=== PATIENT | female | born 1995 | race Caucasian/White ===

== ENCOUNTER 2016-10-27 12:48 | Emergency (ER) | payer OTHER ==
[~2016-10-27] VITALS: Ht 165.1 cm; Wt 90.7 kg
[~2016-10-27 12:48] MED LIST: MUCINEX D ER T1 EACH PO; NOHOMEMEDS; PERCOCET 5/31 TABLET PO; PREDNISONE20 MG PO; PRILOSEC OTC20 MG PO; TESSALON PERLE100 MG PO; TRI-PREVIFEM1 EACH PO; ZITHROMAX250 MG PO; ZOFRAN4 MG PO
[2016-10-27 13:26] LABS: HEMATOCRIT 40.9 % (36.0-46.0); MCH 29.3 PG (29.0-34.0); MCV 83.8 FL (83-99); MEAN PLAT.VOLUME 10.3 uM^3 (9.5-12.4); PLATELET COUNT 300 K/uL (156-360); RBC DIS.WIDTH-CV 12.6 % (11.8-14.6); RBC DIS.WIDTH-SD 37.9 % (39-53); RED BLOOD COUNT 4.88 M/uL (3.80-5.20); WHITE BLOOD COUNT 9.3 K/uL (4.1-10.2)
[2016-10-27 13:33] LABS: CHLORIDE 112 mEq/L (99-109); POTASSIUM 4.3 mEq/L (3.7-5.4); SODIUM 142 mEq/L (136-147)
[2016-10-27 13:36] LABS: GLUCOSE 94 mg/dL (70-99)
[2016-10-27 13:37] LABS: ANION GAP 8 MEQ/L (2-14)
[2016-10-27 13:38] LABS: TOTAL BILIRUBIN 0.4 mg/dL (0.0-1.0)
[2016-10-27 13:39] LABS: ALKALINE PHOSPHATASE 59 IU/L (3-129); GFR ESTIMATE (CALCULATED) > 59 mL/min/
[2016-10-27 13:40] LABS: UREA NITROGEN (BUN) 11 mg/dL (9-23)
[2016-10-27 13:43] LABS: ADD MIUA? YES; BILIRUBIN NEGATIVE; BLOOD LARGE; COLOR YELLOW ((YELLOW)); GLUCOSE (STRIP) NEGATIVE; KETONES NEGATIVE; LEUKOCYTES TRACE; NITRITE NEGATIVE; PH, URINE 7.5 (5-8); PROTEIN (STRIP) 30
[2016-10-27 13:52] LABS: QUANTITATIVE HCG < 4.0 MIU/ML
[2016-10-27 13:59] LABS: EPITHELIAL CELLS 1+
[2016-10-27 14:00] LABS: BACTERIA 1+; CASTS NONE SEEN /LPF; CRYSTALS NONE SEEN; MUCUS NONE SEEN; RED BLOOD CELLS TNTC /HPF (0-5); UCUL ADDED? NO
[2016-10-27 14:53] VITALS: BP 108/88
== END 2016-10-27 14:57 | disposition home or self-care (01) ==
LOC: EME 12:48
DX: N93.9 Abnormal uterine and vaginal bleeding, unspecified (principal); R10.30 Lower abdominal pain, unspecified; V49.40XA Driver injured in collision with unspecified motor vehicles in traffic accident, initial encounter; F17.210 Nicotine dependence, cigarettes, uncomplicated
CPT/HCPCS: 80053; 81003; 84702; 85027; 99281; 99285